=== PATIENT | female | born 1995 | race Caucasian/White ===

== ENCOUNTER 2024-06-08 22:27 | Outpatient (REF) | payer OTHER, SELFPAY ==
[2024-06-10 11:54] LABS: Campylobacter PCR Negative (Negative); Salmonella PCR Negative (Negative); Shiga Toxin PCR Negative (Negative); Shigella/Enteroinvasive Ecoli Negative (Negative)
[2024-06-12 15:33] LABS: Cryptosporidium, F Negative (Negative); Giardia Ag, F Negative (Negative)
[2024-06-13 16:57] LABS: Calprotectin <50.0 mcg/g
== END 2024-06-08 22:28 | disposition home or self-care (01) ==
LOC: NCHCN 22:27
PROVIDERS: Visit Provider Student in an Organized Health Care Education/Training Program
DX: R19.7 Diarrhea, unspecified (principal)
CPT/HCPCS: 87328; 87329; 87505; 83993; 87177

== ENCOUNTER 2024-06-09 08:39 | Outpatient (CLI) | payer OTHER, SELFPAY ==
[2024-06-09 09:26] LABS: Abs Immature Grans 0.01 10^3/uL (0.0-0.06); Absolute Basophil Count 0.02 10^3/uL (0.0-0.2); Absolute Eosinophil Count 0.03 10^3/uL (0.0-0.7); Absolute Monocyte Count 0.22 10^3/uL (0.1-0.8); Absolute Neutrophil Count 2.29 10^3/uL (1.2-6.7); Basophils % 0.5 %; Eosinophils % 0.8 %; HCT 40.5 % (36.0-46.0); HGB 13.9 g/dL (11.2-15.7); Immature Grans % 0.3 %; Lymphocytes % 35.3 %; MCH 31.7 pg (27.0-33.0); MCHC 34.3 % (32.0-36.0); MCV 93 fL (80-95); MPV 10.3 fL (8.0-11.0); Monocytes % 5.5 %; Neutrophils % 57.6 %; Platelet Count 143 10^3/uL (130-400); RBC 4.38 10^6/uL (3.93-5.22); RDW 11.9 % (11.7-14.6); RDW-SD 40.5 fL; WBC 3.97 10^3/uL (4.4-10.8)
[2024-06-09 09:55] LABS: ALT 26 U/L (14-59); AST 17 U/L (15-37); Albumin 4.1 g/dL (3.4-5.0); Alkaline Phosphatase 60 U/L (46-116); Anion Gap 10.2 mmol/L (3-11); BUN 13 mg/dL (7-18); Bilirubin, Total 0.5 mg/dL (0.2-1.0); CO2 27.8 mmol/L (21.0-32.0); CREATININE 0.6 mg/dL (0.55-1.02); Calcium 9.3 mg/dL (8.5-10.1); Chloride 107 mmol/L (98-107); Estimated GFR 124.53 (mL/min/1.73m2); Ferritin 72 ng/mL (8-252); Glucose 81 mg/dL (74-106); Potassium 3.2 mmol/L (3.5-5.1); Sodium 145 mmol/L (136-145); TSH 1.18 uIU/mL (0.36-3.74); Total Protein 7.9 g/dL (6.4-8.2)
[2024-06-09 10:16] LABS: Iron 56 ug/dL (50-170); Total Iron Binding Capacity 309 ug/dL (250-450); Transferrin Sat 18 % (15-50)
[2024-06-09 17:41] LABS: T4, Free 1.4 ng/dL (0.8-2.2)
[2024-06-12 12:19] LABS: Tissue Transglutaminase Ab IgG 2.2 U/mL
[2024-06-12 12:25] LABS: Tissue Transglutaminase IgA <4.0 CU (<20.0)
== END 2024-06-09 08:40 | disposition home or self-care (01) ==
LOC: LBO 08:39
PROVIDERS: Visit Provider Student in an Organized Health Care Education/Training Program
DX: R63.6 Underweight (principal); Z86.2 Personal history of diseases of the blood and blood-forming organs and certain disorders involving the immune mechanism
CPT/HCPCS: 36415; 80053; 86364; 82728; 83540; 83550; 84439; 84443; 85025

== ENCOUNTER → 2024-07-10 10:01 | Outpatient (BNVA) | payer OTHER, SELFPAY | PROVIDERS: PCP Student in an Organized Health Care Education/Training Program; Referring Provider Student in an Organized Health Care Education/Training Program; Visit Provider Surgery | DX: R19.7 Diarrhea, unspecified (principal) | CPT/HCPCS: 99204 ==

== ENCOUNTER 2024-07-28 05:58 | Day surgery (SDC) | payer OTHER, SELFPAY ==
[2024-07-28 06:20] VITALS: BP 121/67; PULSE 86; RESP 17; TEMP 37.1; O2SAT 96
[2024-07-28] MEDS: Lactated Ringers 1,000 ML 80 ML IV (06:30)
[2024-07-28 06:55] VITALS: BMI 19.5
--- NOTE | 2024-07-28 06:55 | W.ANESPRE ---
General Info Date of Service Date Performed: 07/28/24 Height: 4 ft 10.5 in Weight: 43 kg Body Mass Index (BMI): 19.5 Surgical Procedure: Operation Date: 07/28/24 07:35 Proposed Procedure Side Surgeon p Colonoscopy Lalita NEGRO MD Meds Allergies and Home Medications Allergies Allergy/AdvReac Type Severity Reaction Status Date / Time acetaminophen (From Vicodin) Allergy Anaphylaxis Verified 07/28/24 06:22 hydrocodone (From Vicodin) Allergy Anaphylaxis Verified 07/28/24 06:22 Home Medication ?Medication ?Instructions ?Recorded mirtazapine 7.5 mg tablet 7.5 mg PO QHS 06/30/24 bisacodyl 5 mg tablet,delayed 5 mg PO ONCE colonscopy bowel prep 07/10/24 release (Dulcolax (bisacodyl)) #4 tabs multivitamin (Daily Multi-Vitamin 1 tab PO DAILY 07/10/24 tablet) polyethylene glycol 3350 17 238 g PO ONCE colonoscopy prep 07/10/24 gram/dose oral powder #238 grams Current Visit Medications: Current Medications Generic Name Dose Route Start Last Admin Trade Name Freq PRN Reason Stop Dose Admin Ringer's Solution 1,000 mls @ 80 mls/hr 07/28/24 06:00 07/28/24 06:30 IV 07/28/24 23:59 80 mls/hr INFUSION TY Administration IV Miscellaneous Supplies 1 each 07/28/24 06:00 Iv Access IV 07/28/24 23:59 DIRECTED TY Sodium Chloride 0 ml 07/28/24 06:00 Normal Saline Flush 10 Ml Syr IV 07/28/24 23:59 PRN PRN Sodium Chloride 0 ml 07/28/24 06:00 Normal Saline 10 Ml Vial IJ 07/28/24 23:59 DIRECTED PRN Sterile Water 0 ml 07/28/24 06:00 Water,Injection,Sterile 10 Ml Vial IJ 07/28/24 23:59 DIRECTED PRN PFSH Medical History Medical History Pain, joint, knee, left Diarrhea Underweight Scoliosis deformity of spine Rods and pins Hematochezia Insomnia Surgical History Surgical History History of Tobacco Smoking/Tobacco Use Status: Current every day Tobacco Type: cigarettes Passive smoking exposure: Yes Alcohol Alcohol Intake: never Substance Use Substance use: Daily Substance use type: marijuana Details: Marijuana use in last 24 hours, cigarette use in last 24 hours. Vital Signs and Lab Results Vital Signs Most Recent Vital Signs in EMR: Most Recent Vital Signs Temp Pulse Resp BP Pulse Ox 37.1 C 86 17 121/67 96 07/28/24 06:20 07/28/24 06:20 07/28/24 06:20 07/28/24 06:20 07/28/24 06:20 Point of Care Results Point of Care Results: POC- Test(urine) Negative 07/28/24 06:23 Lab Results Blood Type / Crossmatch: No Data to Display Complete Blood Count: No Data to Display Complete Metabolic Panel: No Data to Display Liver Function Panel: No Data to Display Coagulation Panel: No Data to Display Cardiac Panel: No Data to Display Arterial Blood Gas: No Data to Display Venous Blood Gas: No Data to Display Pancreas Panel: No Data to Display Thyroid Panel: No Data to Display Infectious Disease: No Data to Display Blood Cultures: No Data to Display Toxicology Panel: No Data to Display Panel: No Data to Display Anesthesia Assessment and Plan Anesthesia History Personal History: No History of Anesthesia Complications Family History: No Family History of Anesthesia Complications Exercise Tolerance Exercise Tolerance: Metabolic Equivalents>4 Pertinent Negatives Pertinent Negatives: No Symptoms of GERD, No Major Cardiovascular Symptoms or Complaints, No Major Pulmonary Symptoms or Complaints and No History of CVA/TIA Cardiac & Pulmonary Exam Cardiac Exam: Normal S1/S2 Heart Sounds Pulmonary Exam: Clear Bilateral Breath Sounds Implantable Cardiac Device Does patient have a Pacemaker or an ICD?: No Airway Exam Known Difficult Airway: No Mallampati Class: 1 Mouth Opening: Normal (> 3cm) Thyromental Distance: Greater than 3 cm Neck Range of Motion: Limited ROM (history of scoliosis surgery. Limited neck ROM) Neck Circumference: Normal Teeth Condition: Normal Dentition ASA Classification ASA Score: ASA 2 Emergency Case?: No NPO Status NPO Status: NPO Clears >2 hours, Solids >8 hours Status Status: Negative HCG Anesthesia Plan Resuscitation Status: Full Code Anesthesia Technique: General Anesthesia Airway Planned: Natural Airway Monitors Used: Standard Monitors
[2024-07-28 08:12] VITALS: BP 99/71; PULSE 72; RESP 16; TEMP 36.6; O2SAT 98
--- NOTE | 2024-07-28 08:21 | ROE_ITS ---
Operative Note Operative Note PRE-OP DIAGNOSIS: Diarrhea POST-OP DIAGNOSIS: other (Colon polyp) PROCEDURE: Colonoscopy SURGEON: Lalita NGUYEN ANESTHESIA TYPE: MAC Refer to Anesthesia Record PATHOLOGY: other (Terminal ileum mucosal biopsies, right colon random mucosal biopsies, left colon random mucosal biopsies, rectal polyp, rectal mucosal biopsies) COMPLICATIONS: None Patient was transported to: PACU Patient's condition: stable Findings: Normal-appearing mucosa throughout the terminal ileum and colon, 1 subcentimeter polyp Procedure Description: After obtaining informed consent, patient was brought back to the endoscopy suite. She was turned in the left side and connected to the monitors. Timeout was performed. Propofol was administered by the nurse technical writer and editor. I began by performing a digital rectal exam. This revealed a small noninflamed anterior midline hemorrhoid. I inserted the colonoscope and advanced the length of the colon. I attained the cecum as identified by the appendiceal orifice and the ileocecal valve. I intubated the ileocecal valve to view the terminal ileum. This had a normal appearance. I took some terminal ileum mucosal biopsies. I withdrew into the cecum. This also had a normal appearance. Prep was good. I withdrew along the ascending and transverse colon. I took random right colon mucosal biopsies. I continued to withdraw through the transverse and into the descending and sigmoid colon. No mucosal abnormalities were noted. I took left colon random mucosal biopsies. In the upper rectum I noted a small 3 mm sessile hyperplastic appearing polyp that I removed with a cold biopsy forcep. This was sent to pathology. There was some slight irritation of the mucosa in the distal rectum. I took rectal mucosal biopsies. I did retroflex. This was unremarkable. I decompressed the sigmoid and the rectum and withdrew the scope entirely. Patient tolerated well. She went to recovery in stable condition. Disposition: Patient will be discharged home later today. We will call her with the pathology report. She will likely be indicated for repeat screening colonoscopy at the age of [age] years old. Date of Procedure: 07/28/24
[2024-07-28 08:37] VITALS: BP 105/65; PULSE 66; RESP 16; TEMP 36.6; O2SAT 98
--- NOTE | 2024-07-28 08:44 | W.ANESPOSTOP ---
Postoperative Evaluation Date, Time and Location Date Performed: 07/28/24 Time Performed: : Patient Location: Day Surgery Unit Vital Signs Most Recent Imported Vital Signs: Most Recent Vital Signs Temp Pulse Resp BP Pulse Ox 36.6 C 66 16 105/65 98 07/28/24 08:37 07/28/24 08:37 07/28/24 08:37 07/28/24 08:37 07/28/24 08:37 Pain Score Most Recent Pain Score: Most Recent Pain Score Pain Level 0 07/28/24 08:37 Assessment Mental Status: Awake (Alert & Oriented to Patient Baseline) Airway and Respiratory Function: Patent airway with normal (patient baseline) respiratory exam Cardiovascular Function: Hemodynamically Stable Hydration Status: Adequately Hydrated Nausea & Vomiting: No Nausea or Vomiting Pain: Pt. Denies Any Pain Peripheral Nerve Block: Patient did not receive a nerve block
== END 2024-07-28 08:50 | disposition home or self-care (01) ==
PROVIDERS: PCP Student in an Organized Health Care Education/Training Program; Visit Provider Surgery
PROC: 0DJD8ZZ Inspection of Lower Intestinal Tract, Via Natural or Artificial Opening Endoscopic (ICD-10-PCS; CPT 45378; principal; 2024-07-28 07:30)
DX: R19.7 Diarrhea, unspecified (principal); K63.5 Polyp of colon
CPT/HCPCS: 45380; 81025; 88305; J2704

== ENCOUNTER 2024-08-15 10:39 | Outpatient (CLI) | payer OTHER, SELFPAY ==
--- NOTE | 2024-08-15 10:00 | DI.RAD_ITS ---
Exam(s) XR KNEE LT 3V AP,LAT,WARREN EXAM: XR KNEE LT 3V AP,LAT,WARREN CLINICAL HISTORY: LEFT KNEE PAIN. TECHNIQUE: 2D digital imaging was performed. COMPARISON: No exams were available for comparison FINDINGS: 3 views No evidence of fracture or joint effusion. No degenerative changes. Bone density normal. No joint space narrowing nor osseous lesions. There is abnormal soft tissue swelling anterior to the lower patella and superior half of the patella r ligament. There are no calcifications nor radiopaque foreign body at this level. No gas in the so ft tissues. IMPRESSION: No significant osseous findings in the left knee Soft tissue swelling anterior to the lower patella and upper patellar ligament as described above. DATA REPOSITORY: RADIATION DOSE DELIVERED:
== END 2024-08-15 10:40 | disposition home or self-care (01) ==
LOC: DIORS 10:39
PROVIDERS: PCP Student in an Organized Health Care Education/Training Program; Referring Provider Student in an Organized Health Care Education/Training Program; Visit Provider Student in an Organized Health Care Education/Training Program
DX: M70.42 Prepatellar bursitis, left knee; M23.92 Unspecified internal derangement of left knee
CPT/HCPCS: 99213; 73562